=== PATIENT | female | born 2005 | race Two or more races ===

== ENCOUNTER 2024-11-19 04:49 | Emergency (ER) | payer OTHER ==
[~2024-11-19] VITALS: Ht 157.5 cm; Wt 90.7 kg
[2024-11-19] MEDS ORDERED: PRENATAL + DHA1 EAC1 PO (05:03)
[2024-11-19 06:27] LABS: HEMATOCRIT 37.8 % (36.0-45.00); HEMOGLOBIN 12.3 g/dL (12.0-15.00); MEAN CORPUSCULAR HGB CONC 32.5 g/dl (32.0-36.0); PLATELET COUNT 175 K/uL (150-450); RED BLOOD COUNT 4.39 M/uL (4.00-6.00); RED CELL DISTRIBUTION WIDTH 14.9 % (11.5-14.5)
[2024-11-19 07:52] LABS: PH,URINE 6.5 (5.0-8.0); URINE APPEARANCE Clear; URINE BILIRRUBIN Negative (NEGATIVE); URINE BLOOD Negative; URINE COLOR Yellow; URINE GLUCOSE Negative (NEGATIVE); URINE KETONE Negative (NEGATIVE); URINE LEUKOCYTE Trace; URINE NITRATE Negative; URINE PROTEIN Negative (NEGATIVE); URINE UROBILINOGEN 0.2 E.U./dl
[2024-11-19 07:54] LABS: URINE BACTERIA 128.4 uL (0.0-1933); URINE EPITHELIAL CELLS 52.2 uL (0.0-38.8); URINE RBC 15.3 uL (0.0-20.8); URINE WBC 12.6 uL (0.0-23.2)
[2024-11-19 08:29] LABS: URINE CAST 0.14 uL (0.0-1.40); URINE CRYSTALS FEW /HPF; URINE YEAST FEW /hpf
== END 2024-11-19 10:40 | disposition home or self-care (01) ==
LOC: ER 04:49
DX: O26.891 Other specified pregnancy related conditions, first trimester (principal); Z3A.13 13 weeks gestation of pregnancy; R30.0 Dysuria